=== PATIENT | female | born 1990 | race Caucasian/White ===

== ENCOUNTER 2021-04-16 18:45 | Inpatient (IN) | payer MEDICAID ==
[~2021-04-16] VITALS: Ht 162.6 cm; Wt 98.9 kg
[2021-04-16 20:29] LABS: BASOPHILS % (AUTO) 0.4 % (0.0-2.0); EOSINOPHILS % (AUTO) 0.2 % (1.0-6.0); HEMOGLOBIN 10.2 g/dL (12.0-16.0); LYMPHOCYTES # (AUTO) 1.7 K/uL (1.0-4.8); LYMPHOCYTES % (AUTO) 16.4 % (22.0-44.0); MEAN CORPUSCULAR HEMOGLOBIN 22.6 pg (26.0-34.0); MEAN CORPUSCULAR VOLUME 73 fL (80-100); MONOCYTES # (AUTO) 0.4 K/uL (0.1-1.0); NEUTROPHILS # (AUTO) 8.3 K/uL (1.8-7.7); PLATELET COUNT (AUTO) 303 K/uL (150-450); RED BLOOD CELL COUNT(AUTO) 4.52 MIL/uL (4.00-5.20); RED CELL DISTRIBUTION WIDTH 22.8 % (11.5-14.5)
[2021-04-16 21:02] LABS: CHLORIDE 105 mmol/L (98-107); HCG,QUANTITATIVE < 1 mIU/mL (0-6); POTASSIUM 3.9 mmol/L (3.5-5.1); SODIUM SERUM 147 mmol/L (136-145)
[2021-04-16 21:15] LABS: ALANINE AMINOTRANSFERASE 20 U/L (12-78); ALBUMIN 3.8 g/dL (3.4-5.0); ALKALINE PHOSPHATASE 91 U/L (46-116); ANION GAP 17 mmol/L (8-16); ASPARTATE AMINOTRANSFERASE 13 U/L (15-37); BILIRUBIN,TOTAL 0.6 mg/dL (0.1-1.0); CALCIUM, TOTAL 8.9 mg/dL (8.8-10.5); CARBON DIOXIDE 25 mmol/L (22-29); GLOMERULAR FILTR. RATE CALC > 60 mL/min (>60); GLUCOSE,RANDOM 90 mg/dL (70-110); TOTAL PROTEIN, SERUM 8.1 g/dL (6.4-8.2); UREA NITROGEN, BLOOD 6 mg/dL (7-18)
[2021-04-16 22:17] LABS: AMPHET/METH SCREEN,URINE NEGATIVE (NEGATIVE); BARBITURATE SCREEN, URINE NEGATIVE (NEGATIVE); BENZODIAZEPINES SCREEN,URINE NEGATIVE (NEGATIVE); CANNABINOID SCREEN,URINE POSITIVE (NEGATIVE); COCAINE SCREEN,URINE NEGATIVE (NEGATIVE); METHADONE SCREEN, URINE NEGATIVE (NEGATIVE); OPIATE SCREEN,URINE NEGATIVE (NEGATIVE)
[2021-04-16] MEDS ORDERED: HYDR-4031 PO (22:17)
[2021-04-16] MEDS ORDERED: [UNRECOGNIZED DRUG - OTHER] PEG (22:17)
[2021-04-16] MEDS ORDERED: HYDR5TAB14 PO (22:17)
[2021-04-16 22:21] LABS: PHENCYCLIDINE SCREEN,URINE NEGATIVE (NEGATIVE)
[2021-04-17 00:12] LABS: COVID AG,FIA SOURCE NASOPHARYNGEAL
[2021-04-17] MEDS ORDERED: LORazepam 2 MG TABLET PO PRN (01:00)
[2021-04-17] MEDS ORDERED: HALOPERIDOL 5 MG TABLET PO PRN (01:00)
[2021-04-17] MEDS: ZOLPIDEM TARTRATE 10 MG TABLET PO PRN (01:33)
[2021-04-17] MEDS ORDERED: ACETAMINOPHEN 500 MG TABLET PO ONE (01:45)
[2021-04-17 03:05] VITALS: BP 119/78
[2021-04-17 08:00] VITALS: BP 122/65
[2021-04-17] MEDS ORDERED: HYD50 PO (12:30)
[2021-04-17] MEDS ORDERED: CARI1.5C PO (12:30)
[2021-04-17] MEDS ORDERED: LOPERAMIDE HCL 2 MG CAPSULE PO PRN (13:00)
[2021-04-17] MEDS ORDERED: MAGNESIUM HYDROXIDE SUSPENSION 30 ML UDCUP PO PRN (13:00)
[2021-04-17] MEDS ORDERED: ONDANSETRON HCL 4 MG TABLET PO PRN (13:00)
[2021-04-17] MEDS ORDERED: ACETAMINOPHEN 325 MG TABLET PO PRN (13:00)
[2021-04-17] MEDS ORDERED: DOCUSATE SODIUM 100 MG CAPSULE PO PRN (13:00)
[2021-04-17] MEDS ORDERED: PETROLATUM,WHITE 28 GM JELLY TP PRN (13:00)
[2021-04-17] MEDS ORDERED: ALBUTEROL SULFATE HFA 90 MCG/PUFF 8 GM INHALER IH PRN (13:00)
[2021-04-17] MEDS ORDERED: IBUPROFEN 400 MG TABLET PO PRN (13:00)
[2021-04-17] MEDS ORDERED: NICOTINE 14 MG/24 HOUR PATCH TD PRN (13:00)
[2021-04-17] MEDS ORDERED: CloNIDine HCL 0.1 MG TABLET PO PRN (13:00)
[2021-04-17] MEDS ORDERED: MAG HYDROX/AL HYDROX/SIMETH ES 30 ML SUSPENSION UDCUP PO PRN (13:00)
[2021-04-17] MEDS ORDERED: GuaiFENesin/D-METHORPHAN [SUGAR-FREE] 200-20MG/10 ML SYRUP UDCUP PO PRN (13:00)
[2021-04-17] MEDS: BuPROPion HCL XL 150 MG ER TABLET PO SCH (13:21)
[2021-04-17 16:39] VITALS: BP 114/80
[2021-04-18 08:14] VITALS: BP 101/64
[2021-04-18] MEDS: BuPROPion HCL XL 150 MG ER TABLET PO SCH (08:42)
[2021-04-18 15:00] LABS: APPEARANCE,URINE CLOUDY (CLEAR); BILIRUBIN,URINE NEGATIVE (NEGATIVE); GLUCOSE, URINE (UA) NEGATIVE (NEGATIVE); KETONES,URINE NEGATIVE (NEGATIVE); LEUKOCYTE ESTERASE ,URINE LARGE (NEGATIVE); NITRATE,URINE NEGATIVE (NEGATIVE); OCCULT BLOOD,URINE NEGATIVE (NEGATIVE); PH,URINE 7.5 (5.0-8.0); PROTEIN,URINE NEGATIVE (NEGATIVE)
[2021-04-18 15:17] LABS: AMPHET/METH SCREEN,URINE NEGATIVE (NEGATIVE); BARBITURATE SCREEN, URINE NEGATIVE (NEGATIVE); BENZODIAZEPINES SCREEN,URINE NEGATIVE (NEGATIVE); CANNABINOID SCREEN,URINE POSITIVE (NEGATIVE); COCAINE SCREEN,URINE NEGATIVE (NEGATIVE); METHADONE SCREEN, URINE NEGATIVE (NEGATIVE); OPIATE SCREEN,URINE NEGATIVE (NEGATIVE); PHENCYCLIDINE SCREEN,URINE NEGATIVE (NEGATIVE)
[2021-04-18 15:19] LABS: RBC,URINE 0-2 /HPF (0-2)
[2021-04-18 15:20] LABS: BACTERIA,URINE Few /HPF (None Seen); SQUAMOUS EPITHELIAL CELL,UR Moderate /LPF (None Seen)
[2021-04-18 16:29] VITALS: BP 123/84
[2021-04-18] MEDS: ZOLPIDEM TARTRATE 10 MG TABLET PO PRN (21:42)
[2021-04-19 08:21] VITALS: BP 108/51
[2021-04-19] MEDS: BuPROPion HCL XL 150 MG ER TABLET PO SCH (08:56)
[2021-04-19 16:19] VITALS: BP 122/69
[2021-04-19] MEDS: GABAPENTIN 300 MG CAPSULE PO SCH (16:39)
[2021-04-19] MEDS: ZOLPIDEM TARTRATE 10 MG TABLET PO PRN (22:39)
[2021-04-20] MEDS: GABAPENTIN 300 MG CAPSULE PO SCH (08:21)
[2021-04-20] MEDS: CEPHALEXIN MONOHYDRATE 500 MG CAPSULE PO SCH ×2 (08:21→12:04)
[2021-04-20] MEDS: BuPROPion HCL XL 150 MG ER TABLET PO SCH (08:22)
[2021-04-20 08:30] VITALS: BP 115/67
[2021-04-20] MEDS ORDERED: GABA-1181 PO (13:32)
[2021-04-20] MEDS ORDERED: BUPR-93 PO (13:32)
[2021-04-20] MEDS ORDERED: CEPH500C3 PO (13:33)
[2021-04-20 16:00] VITALS: BP 117/72
== END 2021-04-20 16:30 | disposition home or self-care (01) | DRG 751 ==
LOC: EMS 18:45 → 3EI 04-17 01:40
PROVIDERS: ADMIT Psychiatry & Neurology Psychiatry; ATTEND Psychiatry & Neurology Psychiatry
DX: F33.2 Major depressive disorder, recurrent severe without psychotic features (principal); E87.0 Hyperosmolality and hypernatremia; R45.851 Suicidal ideations; Z91.14 Patient's other noncompliance with medication regimen; Z20.822 Contact with and (suspected) exposure to COVID-19; E03.9 Hypothyroidism, unspecified; E66.9 Obesity, unspecified; Z68.37 Body mass index [BMI] 37.0-37.9, adult; F12.90 Cannabis use, unspecified, uncomplicated; Z91.5 Personal history of self-harm
CPT/HCPCS: 80053; 80061; 81001; 84443; 84702; 85025; 87077; 87081; 87086; 87186; 99285; G0480

== ENCOUNTER 2022-01-03 20:05 | Inpatient (IN) | payer MEDICAID ==
[~2022-01-03] VITALS: Ht 162.6 cm; Wt 110.0 kg
[~2022-01-03 20:05] MED LIST: BUPR-50 PO; CEPH-558 PO; GABA-1181 PO
[2022-01-03 20:38] LABS: BASOPHILS % (AUTO) 0.4 % (0.0-2.0); EOSINOPHILS % (AUTO) 0.1 % (1.0-6.0); HEMATOCRIT 39.1 % (36-46); HEMOGLOBIN 12.7 g/dL (12.0-16.0); LYMPHOCYTES # (AUTO) 1.2 K/uL (1.0-4.8); LYMPHOCYTES % (AUTO) 11.4 % (22.0-44.0); MEAN CORPUSCULAR HEMOGLOBIN 25.7 pg (26.0-34.0); MEAN CORPUSCULAR HGB CONC 32.5 G/dL (31.0-37.0); MEAN CORPUSCULAR VOLUME 79 fL (80-100); MONOCYTES # (AUTO) 0.4 K/uL (0.1-1.0); MONOCYTES % (AUTO) 3.8 % (2.0-9.0); NEUTROPHILS # (AUTO) 9.2 K/uL (1.8-7.7); NEUTROPHILS % (AUTO) 84.3 % (40.0-70.0); PLATELET COUNT (AUTO) 294 K/uL (150-450); RED BLOOD CELL COUNT(AUTO) 4.95 MIL/uL (4.00-5.20); RED CELL DISTRIBUTION WIDTH 17.6 % (11.5-14.5)
[2022-01-03 20:53] LABS: COVID AG,FIA SOURCE NASAL SWAB
[2022-01-03 20:54] LABS: ANION GAP 11 mmol/L (8-16); CALCIUM, TOTAL 8.7 mg/dL (8.8-10.5); CARBON DIOXIDE 25 mmol/L (22-29); CHLORIDE 102 mmol/L (98-107); CREATININE 1.01 mg/dL (0.60-1.30); GLOMERULAR FILTR. RATE CALC > 60 mL/min (>60); GLUCOSE,RANDOM 91 mg/dL (70-110); POTASSIUM 3.6 mmol/L (3.5-5.1); SODIUM SERUM 138 mmol/L (136-145); UREA NITROGEN, BLOOD 11 mg/dL (7-18)
[2022-01-03 21:05] LABS: ALANINE AMINOTRANSFERASE 24 U/L (12-78); ALKALINE PHOSPHATASE 97 U/L (46-116); ASPARTATE AMINOTRANSFERASE 15 U/L (15-37); HCG,QUANTITATIVE < 1 mIU/mL (0-6); TOTAL PROTEIN, SERUM 8.7 g/dL (6.4-8.2)
[2022-01-03] MEDS: ZOLPIDEM TARTRATE 10 MG TABLET PO PRN (23:36)
[2022-01-03 23:44] LABS: APPEARANCE,URINE CLEAR (CLEAR); BILIRUBIN,URINE NEGATIVE (NEGATIVE); GLUCOSE, URINE (UA) NEGATIVE (NEGATIVE); KETONES,URINE 80-100 mg/dL (NEGATIVE); LEUKOCYTE ESTERASE ,URINE NEGATIVE (NEGATIVE); NITRATE,URINE NEGATIVE (NEGATIVE); OCCULT BLOOD,URINE LARGE (NEGATIVE); PROTEIN,URINE 30-70 mg/dL (NEGATIVE); SPECIFIC GRAVITIY, URINE 1.032 (1.003-1.030); UROBILINOGEN,URINE <=1.0 mg/dL (<=1.0)
[2022-01-03 23:50] LABS: AMPHET/METH SCREEN,URINE NEGATIVE (NEGATIVE); BARBITURATE SCREEN, URINE NEGATIVE (NEGATIVE); BENZODIAZEPINES SCREEN,URINE NEGATIVE (NEGATIVE); CANNABINOID SCREEN,URINE POSITIVE (NEGATIVE); COCAINE SCREEN,URINE NEGATIVE (NEGATIVE); METHADONE SCREEN, URINE NEGATIVE (NEGATIVE); OPIATE SCREEN,URINE NEGATIVE (NEGATIVE); PHENCYCLIDINE SCREEN,URINE NEGATIVE (NEGATIVE)
[2022-01-03 23:58] LABS: BACTERIA,URINE Rare /HPF (None Seen); WBC,URINE 0-2 /HPF (0-5)
[2022-01-03 23:59] LABS: SQUAMOUS EPITHELIAL CELL,UR Few /LPF (None Seen)
[2022-01-04 01:45] VITALS: BP 100/72
[2022-01-04] MEDS: BACITRACIN 28 GM OINTMENT TP SCH ×2 (09:56→17:11)
[2022-01-04] MEDS ORDERED: IBUPROFEN 400 MG TABLET PO PRN ×2 (10:15→14:30)
[2022-01-04] MEDS ORDERED: ACETAMINOPHEN 325 MG TABLET PO PRN ×2 (10:15→14:30)
[2022-01-04] MEDS ORDERED: MAG HYDROX/AL HYDROX/SIMETH ES 30 ML SUSPENSION UDCUP PO PRN ×2 (10:15→14:30)
[2022-01-04] MEDS ORDERED: ALBUTEROL SULFATE HFA 90 MCG/PUFF 8 GM INHALER IH PRN ×2 (10:15→14:30)
[2022-01-04] MEDS ORDERED: LOPERAMIDE HCL 2 MG CAPSULE PO PRN ×2 (10:15→14:30)
[2022-01-04] MEDS ORDERED: GuaiFENesin/D-METHORPHAN [SUGAR-FREE] 200-20MG/10 ML SYRUP UDCUP PO PRN ×2 (10:15→14:30)
[2022-01-04] MEDS ORDERED: MAGNESIUM HYDROXIDE SUSPENSION 30 ML UDCUP PO PRN ×2 (10:15→14:30)
[2022-01-04] MEDS ORDERED: DOCUSATE SODIUM 100 MG CAPSULE PO PRN ×2 (10:15→14:30)
[2022-01-04] MEDS ORDERED: NICOTINE 14 MG/24 HOUR PATCH TD PRN ×2 (10:15→14:30)
[2022-01-04] MEDS ORDERED: PETROLATUM,WHITE 28 GM JELLY TP PRN ×2 (10:15→14:30)
[2022-01-04] MEDS ORDERED: ONDANSETRON HCL 4 MG TABLET PO PRN ×2 (10:15→14:30)
[2022-01-04] MEDS ORDERED: CloNIDine HCL 0.1 MG TABLET PO PRN ×2 (10:15→14:30)
[2022-01-04 10:39] VITALS: BP 122/79
[2022-01-04 11:33] VITALS: BP 119/80
[2022-01-04 16:00] VITALS: BP 104/65
[2022-01-04] MEDS: GABAPENTIN 300 MG CAPSULE PO SCH (17:11)
[2022-01-04] MEDS: HALOPERIDOL 5 MG TABLET PO PRN (20:55)
[2022-01-04] MEDS: LORazepam 2 MG TABLET PO PRN (20:55)
[2022-01-05] MEDS: BACITRACIN 28 GM OINTMENT TP SCH ×2 (09:00→16:04)
[2022-01-05] MEDS: GABAPENTIN 300 MG CAPSULE PO SCH ×2 (09:00→16:04)
[2022-01-05] MEDS: BuPROPion HCL XL 150 MG ER TABLET PO SCH (09:00)
[2022-01-05 09:33] VITALS: BP 121/83
[2022-01-05 16:00] VITALS: BP 117/82
[2022-01-05] MEDS: ZOLPIDEM TARTRATE 10 MG TABLET PO PRN (20:57)
[2022-01-06] MEDS: GABAPENTIN 300 MG CAPSULE PO SCH ×2 (08:49→16:06)
[2022-01-06] MEDS: BuPROPion HCL XL 150 MG ER TABLET PO SCH (08:49)
[2022-01-06] MEDS: BACITRACIN 28 GM OINTMENT TP SCH ×2 (08:49→17:00)
[2022-01-06 16:20] VITALS: BP 116/73
[2022-01-06] MEDS: ZOLPIDEM TARTRATE 10 MG TABLET PO PRN (21:05)
[2022-01-07 08:56] VITALS: BP 116/66
[2022-01-07] MEDS: BuPROPion HCL XL 150 MG ER TABLET PO SCH (09:06)
[2022-01-07] MEDS: GABAPENTIN 300 MG CAPSULE PO SCH ×2 (09:06→16:07)
[2022-01-07] MEDS: BACITRACIN 28 GM OINTMENT TP SCH ×2 (09:47→16:07)
[2022-01-07] MEDS: LORazepam 2 MG TABLET PO PRN (12:19)
[2022-01-07 16:20] VITALS: BP 110/70
[2022-01-07 16:21] VITALS: BP 110/70
[2022-01-07] MEDS: ZOLPIDEM TARTRATE 10 MG TABLET PO PRN (22:30)
[2022-01-08 08:00] VITALS: BP 122/70
[2022-01-08] MEDS: HALOPERIDOL 5 MG TABLET PO PRN (08:20)
[2022-01-08] MEDS: LORazepam 2 MG TABLET PO PRN (08:20)
[2022-01-08] MEDS: GABAPENTIN 300 MG CAPSULE PO SCH (08:20)
[2022-01-08] MEDS: BuPROPion HCL XL 150 MG ER TABLET PO SCH (08:20)
[2022-01-08] MEDS: BACITRACIN 28 GM OINTMENT TP SCH (09:02)
[2022-01-08] MEDS ORDERED: GABA-1181 PO (10:47)
[2022-01-08] MEDS ORDERED: BUPR-50 PO (10:47)
== END 2022-01-08 14:39 | disposition home or self-care (01) | DRG 753 ==
LOC: EMS 20:11 → 3EI 01-04 00:15
PROVIDERS: ADMIT Psychiatry & Neurology Psychiatry; ATTEND Psychiatry & Neurology Psychiatry
DX: F31.64 Bipolar disorder, current episode mixed, severe, with psychotic features (principal); R45.851 Suicidal ideations; E03.9 Hypothyroidism, unspecified; E66.9 Obesity, unspecified; F12.10 Cannabis abuse, uncomplicated; Z20.822 Contact with and (suspected) exposure to COVID-19; Z79.899 Other long term (current) drug therapy; Z68.41 Body mass index [BMI] 40.0-44.9, adult
CPT/HCPCS: 80053; 81001; 84702; 85025; 99285; G0480